=== PATIENT | male | born 1970 | race Two or more races ===

== ENCOUNTER 2019-07-07 20:16 | Emergency (ER) | payer OTHER ==
[~2019-07-07] VITALS: Ht 175.3 cm; Wt 85.3 kg
== END 2019-07-07 22:55 | disposition home or self-care (01) ==
LOC: ER 20:16
DX: F06.4 Anxiety disorder due to known physiological condition (principal)

== ENCOUNTER 2022-05-22 13:41 | Emergency (ER) | payer OTHER ==
[~2022-05-22] VITALS: Ht 172.7 cm; Wt 88.5 kg
[2022-05-22] MEDS ORDERED: ATIVAN0.5 M1 (13:51)
== END 2022-05-22 18:51 | disposition home or self-care (01) ==
LOC: ER 13:41
DX: F41.9 Anxiety disorder, unspecified (principal); Z88.0 Allergy status to penicillin; Z86.79 Personal history of other diseases of the circulatory system